=== PATIENT | female | born 1995 ===

== ENCOUNTER 2023-03-29 12:07 | Outpatient (RCR) | payer MEDICAID ==
[2023-03-20 11:30] VITALS: BP 112/67
[2023-03-20] MEDS: IRON SUCROSE 200 MG/10 ML VIAL IV SCH (11:57)
[2023-03-22] MEDS: IRON SUCROSE 200 MG/10 ML VIAL IV SCH (09:40)
[2023-03-22 09:47] VITALS: BP 112/67
[2023-03-25] MEDS: IRON SUCROSE 200 MG/10 ML VIAL IV SCH (14:27)
[2023-03-25 14:30] VITALS: BP 111/74
[2023-03-27] MEDS: IRON SUCROSE 200 MG/10 ML VIAL IV SCH (09:57)
[2023-03-27 10:00] VITALS: BP 116/72
[~2023-03-29] VITALS: Wt 69.1 kg
[~2023-03-29 12:07] MED LIST: ACHD5005 PO; DOCU-239 PO; FERR325T18 PO; IBUP-844 PO; PREN1TAB19 PO
[2023-03-29] MEDS ORDERED: IRON SUCROSE 200 MG/10 ML VIAL IV ONE (12:11)
[2023-03-29] MEDS: IRON SUCROSE 200 MG/10 ML VIAL IV SCH (12:27)
[2023-03-29 12:28] VITALS: BP 111/59
== END 2023-03-29 12:52 | disposition home or self-care (01) ==
LOC: SDC 12:07
PROVIDERS: ATTEND Family Medicine
DX: O99.013 Anemia complicating pregnancy, third trimester (principal); D50.9 Iron deficiency anemia, unspecified; Z3A.00 Weeks of gestation of pregnancy not specified
CPT/HCPCS: 96365

== ENCOUNTER 2023-04-16 23:28 | Outpatient (CLI) | payer MEDICAID ==
[~2023-04-16] VITALS: Ht 154.9 cm; Wt 75.3 kg
[2023-04-17 00:20] VITALS: BP 111/56
--- NOTE | 2023-04-17 08:21 | Physician Query-Final Dx ---
HARSHAD,04/17/23 0821: Clinic Account Progress/Dx Physician Query: Please give diagnosis Please include # weeks gestation Date of Service Apr 16, 2023 at 23:28 VANESSA KIRKLAND DO 04/17/23 1029: Clinic Account Progress/Dx DIAGNOSIS: Diagnosis 37 week IUP Irregular contractions ,JulApr 17, 2023 08:21 VANESSA KIRKLAND DO Apr 17, 2023 10:29
== END 2023-04-17 02:33 ==
LOC: WSo 23:28 → LDRP 23:28 → WSo 04-17 02:33
PROVIDERS: ATTEND Obstetrics & Gynecology
DX: O62.9 Abnormality of forces of labor, unspecified (principal); Z3A.37 37 weeks gestation of pregnancy
CPT/HCPCS: 99213

== ENCOUNTER 2023-04-29 09:07 | Inpatient (IN) | payer MEDICAID ==
[~2023-04-29] VITALS: Ht 154.9 cm; Wt 76.0 kg
[2023-04-29] VITALS (57 sets, daily range): BP systolic 99–163; BP diastolic 55–94
[2023-04-29] MEDS ORDERED: LACTATED RINGERS 1,000 ML 500 ML IV PRN (10:45)
[2023-04-29] MEDS ORDERED: MINERAL OIL 30 ML UDC TOP PRN (10:45)
[2023-04-29] MEDS ORDERED: D5 LR 1,000 ML IV SOLN 1,000 ML IV SCH (10:45)
[2023-04-29 10:46] LABS: BASOPHILS % (AUTO) 0 % (0-10)
--- NOTE | 2023-04-29 10:46 | History & Physical-OB ---
OB - Chief Complaint & HPI Date/Time Date of Admission: Date of Admission: 04/29/23 Date seen by a Provider: Apr 29, 2023 Time Seen by a Provider: 10:25 Chief Complaint/History OB-Reason for Admission/Chief: Onset of Labor Hx : 3 Hx Para: 2 Expected Date of Delivery: May 07, 2023 Gestational Age in Weeks: 38 Gestational Age in Days: 6 Other reason for admission: This 27yo presents to L&D at 38w6d with c/o CTXs q5 min that started about 0400 today. Pt denies LOF or VB. Pt's last ended in LTCS d/t distress witha prolonged bradycardia. Her first was a w/o complications. Pt and I had discussed via a margin clerk the risks and benefits of TOLAC in great detail. the pt had ample opportunity to ask questions and had her questions answered to her satisfaction. Pt would like to proceed to TOLAC. Admission Nurse Assessment Rev: Yes History of Labs O+ GBS neg RI Hep B/C NEG HIV NEG RPR NEG Allergies and Home Medications Allergies Coded Allergies: No Known Drug Allergies (Unverified , 10/27/19) Patient Home Medication List Home Medication List Reviewed: Yes Vit/Iron Fumarate/FA ( Vitamins Tablet) 1 Each Tablet, 1 EACH PO DAILY, (Reported) Entered as Reported by: ANGY PEDRAZA on 10/28/19 0956 Last Action: Reviewed OB - History Hx of Present Care: Yes Ultrasounds: Normal mid trimester US Obstetrical Complications: Other (History of LTCS) Information Induced Hypertension: No Maternal Gestational Diabetes: No Hemorrhage: No Obstetrical History Hx : 3 Hx Para: 2 Hx # Term Pregnancies: 2 Hx # Pregnancies: 0 Number of Living Children: 2 Hx Termination: No Delivery History Hx Section: Yes (for distress (1 prior )) Patient Past Medical History n/a Social History/Family History Alcohol Use: Denies Use Smoking Cessation: Never smoker 2nd Hand Smoke Exposure: No Immunizations Influenza Vaccine Up-to-Date: Yes; Up-to-Date OB - Admission Exam Physical Exam HEENT: NCAT Heart: Rhythm Normal Lungs: Clear Abdomen: Gravid Extremities: Normal Reflexes: Normal Cervical Dilatation: 3cm Effacement: 100% Station: -2 Membranes: Intact Heart Rate: 130's Accelerations: Accelerations Present Decelerations: No Decelerations Short Term Variability: Present Care Home Variability: Average (6-25) Contractions on Admission: < 5 Minutes Apart Intensity: Moderate OB - Assessment/Plan/Diagnosis Assessment Assessment: active labor Admission Dx IUP @ 38w6d Active Labor Previous LTCS (with 1 prior ) Admit for labor Plan for TOLAC Admission Status: Inpatient Order (span 2 midnights) Reason for Inpatient Admission: IUP @ 38w6d Active Labor Previous LTCS (with 1 prior ) Admit for labor Plan for TOLAC Plan Plan: Expectant Management SHEILA DOMINGUEZ DO Apr 29, 2023 10:46
[2023-04-29 10:48] LABS: EOSINOPHILS # (AUTO) 0.1 10^3/uL (0.0-0.3); EOSINOPHILS % (AUTO) 1 % (0-10); HEMATOCRIT 37 % (35-52); HEMOGLOBIN 11.5 g/dL (11.5-16.0); LYMPHOCYTES # (AUTO) 1.6 10^3/uL (1.0-4.0); LYMPHOCYTES % (AUTO) 23 % (12-44); MEAN CORPUSCULAR HEMOGLOBIN 25 pg (25-34); MEAN CORPUSCULAR HGB CONC 31 g/dL (32-36); MEAN CORPUSCULAR VOLUME 81 fL (80-99); MEAN PLATELET VOLUME 10.2 fL (9.0-12.2); MONOCYTES # (AUTO) 0.4 10^3/uL (0.0-1.0); MONOCYTES % (AUTO) 5 % (0-12); NEUTROPHILS # (AUTO) 4.9 10^3/uL (1.8-7.8); NEUTROPHILS % (AUTO) 71 % (42-75); PLATELET COUNT 202 10^3/uL (130-400)
[2023-04-29] MEDS ORDERED: fentaNYL 2 mcg/ml BUPIVA 0.125 100 ML ONE (11:15)
[2023-04-29] MEDS ORDERED: BUPIVACAINE 0.25% 10 ML VIAL ONE (11:52)
[2023-04-29] MEDS ORDERED: fentaNYL INJECTION 100 MCG/2 ML VIAL ONE ×2 (11:52→19:52)
[2023-04-29] MEDS ORDERED: ONDANSETRON INJECTION 4 MG/2 ML (SDV) IV PRN (12:30)
[2023-04-29] MEDS ORDERED: CATHETER FLUSH 10 ML SYR IV PRN ×2 (12:30→20:00)
[2023-04-29] MEDS ORDERED: LACTATED RINGERS 1,000 ML 1,000 ML IV ONE (12:30)
[2023-04-29] MEDS ORDERED: fentaNYL 2 mcg/ml BUPIVA 0.125 100 ML EPI SCH (12:30)
[2023-04-29] MEDS ORDERED: NALOXONE 0.4 MG/ML 1 ML VIAL IV PRN ×2 (12:30→21:15)
[2023-04-29] MEDS ORDERED: diphenhydrAMINE INJ 50 MG/ML VIAL IV PRN (12:30)
--- NOTE | 2023-04-29 12:52 | Progress Note ---
Standard Progress Note Progress Notes/Assess & Plan Date Seen by a Provider: Apr 29, 2023 Time Seen by a Provider: 12:45 Progress/Assessment & Plan Pt is comfortable with epidural FHT 140 CAT I CVX /-1 AROM moderate amount clear fluid Tocos Q5min Anticipate delivery SHEILA DOMINGUEZ DO Apr 29, 2023 12:52
[2023-04-29] MEDS ORDERED: CATHETER FLUSH 10 ML SYR IV SCH ×2 (14:00→22:00)
[2023-04-29] MEDS ORDERED: OXYTOCIN DRIP PRE-MIX 500 ML IV ONE ×3 (17:39→21:51)
[2023-04-29] MEDS ORDERED: METOCLOPRAMIDE INJ 10 MG/2 ML ONE (19:50)
[2023-04-29] MEDS ORDERED: CITRIC ACID/SODIUM CITRATE ORAL SOLN 30 ML ONE (19:50)
[2023-04-29] MEDS ORDERED: FAMOTIDINE INJ 20MG/2ML VIAL ONE (19:50)
[2023-04-29] MEDS ORDERED: LIDOCAINE PF 2% 5 ML VIAL ONE (19:51)
[2023-04-29] MEDS ORDERED: AZITHROMYCIN INJECTION 500 MG VIAL ONE (19:52)
[2023-04-29] MEDS ORDERED: ceFAZolin INJECTION 2,000 MG ONE (19:52)
[2023-04-29] MEDS ORDERED: NS (IVPB) 250 ML 250 ML ONE (19:53)
[2023-04-29] MEDS ORDERED: NS (IVPB) 50 ML 50 ML ONE (19:56)
[2023-04-29] MEDS ORDERED: AZITHROMYCIN INJECTION 500 MG in NS (IVPB) 250 ML 250 ML IV ONE (20:00)
[2023-04-29] MEDS ORDERED: METOCLOPRAMIDE INJ 10 MG/2 ML IV ONE (20:00)
[2023-04-29] MEDS ORDERED: LACTATED RINGERS 1,000 ML 1,000 ML IV PRN ×2 (20:00)
[2023-04-29] MEDS ORDERED: CITRIC ACID/SODIUM CITRATE ORAL SOLN 30 ML PO ONE (20:00)
[2023-04-29] MEDS ORDERED: FAMOTIDINE INJ 20MG/2ML VIAL IV ONE (20:00)
[2023-04-29] MEDS ORDERED: ceFAZolin INJECTION 2,000 MG in NS (IVPB) 50 ML 50 ML IV ONE (20:00)
--- NOTE | 2023-04-29 20:09 | Progress Note ---
Standard Progress Note Progress Notes/Assess & Plan Date Seen by a Provider: Apr 29, 2023 Time Seen by a Provider: 19:45 Progress/Assessment & Plan Pt has been pushing for 2+ hours with no forward progress. Epidural was turned off and pt was feeling CTXs FHT 140s CAT I CVX C/+1 TOCOs Q 3-5min D/w pt via argon tester that baby was not making any progress and need to proceed to RLTCS We discussed the risks and benefits in detail. Pt verbalized understanding, signed consents and is ready to proceed. SHEILA DOMINGUEZ DO Apr 29, 2023 20:09
--- NOTE | 2023-04-29 20:11 | Cesarean Section Operative ---
Procedure Procedure Note Pre-operative Diagnosis: Rosmery Ervin is a (27 /Para 3 / 2, Gestational Age (wks)38w6d with Failure to descend history of LTCS x1 with TOLAC Post-operative Diagnosis: same + Procedure: Repeat low transverse section Physician: SHEILA DOMINGUEZ Inlayer: Ramez Kirkland DO Estimated blood loss: 500 mL Disposition: Counts correct x3 Stable to PACU Findings: Liveborn female infant, Apgars 7/9, weight 7#15oz, intact placenta, 3vc, nor mal appearing uterus, tubes, and ovaries. Indications:Rosmery Ervin 27-year-old G3, P2 presented at 38 weeks 6 days EGA with active labor and trial of labor. She then continued to complete and had an arrest of descent. Baby did not pass +1 station. It was decided to proceed to repeat low-transverse section Procedure Details: Informed consent was obtained and signed patient was taken to the OR suite. The patient will was bolused with her epidural anesthesia she was prepped and draped usual sterile fashion. A timeout was performed. Anesthesia was confirmed using an Allis clamp and a Pfannenstiel skin incision was made and carried down to level the fascia the fascia was nicked and incised bilaterally reflected off the rectus abdominis muscle both superiorly and inferiorly the rectus abdominis muscle was in the midline and the peritoneum was entered into bluntly and extended bilaterally. An David self-retaining retractor was then inserted without difficulty. It was noted that the bladder was very high and the baby's head was low in the pelvis. The vesicouterine fascia was then nicked and incised bilaterally using Metzenbaum scissors and the bladder flap was then created and reflected off of the uterus. A low transverse uterine incision was made and extended bilaterally. There is noted the head was noted to be low in the pelvis was delivered up out of the pelvis without any difficulty was delivered atraumatically. There is noted to be a nuchal cord x2 which was loose and reduced. The mouth and nose were bulb suctioned and the posterior shoulder delivered followed by the anterior shoulder followed by the rest the . The cord was clamped and then cut and the infant was placed in the actuary's care. The placenta was manually removed the uterus was exteriori zed and cleared of all clot and debris Cord bloods were also obtained. The uterine incision was reapproximated using 0 Vicryl in a running locking fashion and imbricated using 0 Vicryl in a running fashion for excellent hemostasis. Uterus was noted to be atonic so the patient was given 1 g of TXA intravenously in addition to her bolus of Pitocin. Uterus became firm and was noted to be intact both ovaries were noted to be normal as well as the fallopian tubes. The uterus was placed back inside the abdominal cavity and the incision was inspected once more was noted to be hemostatic. The David retractor was then removed and the rectus abdominis muscle was reapproximated using 0 Vicryl in a running fashion. The fascia was reapproximated using 1-0 Vicryl in a running fashion. The subcutaneous layer was reapproximated using 2-0 Vicryl in interrupted stitches. The skin was reapproximate using 3-0 Monocryl in a running fashion and then the incision was sealed with Dermabond. The estimated blood loss was approximately 500 cc fluids were 1500 cc and urine output was 100 cc. The mother and tolerated the procedure well and a recovering in PACU in stable condition. Dr. Ramez KIRKLAND was my front office assistant with the indication that this was a trial of labor that had failed the fetus was low in the pelvis and was concerned that we would require an extra pair of hands. Vitals - Labs Vital Signs - I&O Vital Signs Date Time Temp Pulse Resp B/P (MAP) Pulse Ox O2 Delivery O2 Flow Rate FiO2 04/29/23 19:20 81 18 125/66 (85) 99 Room Air 04/29/23 19:05 98 18 121/57 (78) 99 Room Air 04/29/23 18:50 38.1 104 18 117/55 (75) 99 Room Air 04/29/23 18:35 88 18 117/60 (79) 99 Room Air 04/29/23 18:20 94 18 111/57 (75) 99 Room Air 04/29/23 18:05 98 18 126/66 (86) 99 Room Air 04/29/23 17:50 92 18 117/71 (86) 99 Room Air 04/29/23 17:35 87 18 145/90 (108) 99 Room Air 04/29/23 17:20 81 18 142/94 (110) 100 Room Air 04/29/23 17:05 37.1 83 18 118/66 (83) 100 Room Air 04/29/23 16:50 87 18 108/66 (80) 100 Room Air 04/29/23 16:36 80 18 117/68 (84) 100 Room Air 04/29/23 16:21 85 18 134/74 (94) 99 Room Air 04/29/23 16:06 87 18 122/67 (85) 99 Room Air 04/29/23 15:50 79 18 114/69 (84) 99 Room Air 04/29/23 15:36 37.2 81 18 116/73 (87) 98 Room Air 04/29/23 15:20 79 18 128/85 (99) 99 Room Air 04/29/23 15:05 86 18 123/75 (91) 99 Room Air 04/29/23 14:50 83 18 138/86 (103) 99 Room Air 04/29/23 14:35 76 18 128/78 (95) 100 Room Air 04/29/23 14:20 74 18 127/74 (91) 100 Room Air 04/29/23 14:00 75 18 121/75 (90) 100 Room Air 04/29/23 13:45 81 18 136/84 (101) 100 Room Air 04/29/23 13:30 69 18 128/72 (90) 100 Room Air 04/29/23 13:15 73 18 115/73 (87) 99 Room Air 04/29/23 13:00 74 18 114/68 (83) 100 Room Air 04/29/23 12:45 79 18 121/71 (88) 99 Room Air 04/29/23 12:40 71 18 120/68 (85) 99 Room Air 04/29/23 12:35 77 18 105/63 (77) 99 Room Air 04/29/23 12:30 70 18 117/62 (80) 98 Room Air 04/29/23 12:25 81 18 106/60 (75) 98 Room Air 04/29/23 12:20 83 18 105/60 (75) 98 Room Air 04/29/23 12:15 85 18 103/61 (75) 98 Room Air 04/29/23 12:10 81 18 114/68 (83) 97 Room Air 04/29/23 12:06 85 18 108/57 (74) 97 Room Air 04/29/23 12:02 80 18 110/59 (76) 97 Room Air 04/29/23 11:40 37.1 73 18 112/56 (74) Room Air 04/29/23 09:30 36.3 80 18 122/76 (91) 100 Room Air Labs Laboratory Tests 04/29/23 10:24: White Blood Count 7.0, Red Blood Count 4.53, Hemoglobin 11.5, Hematocrit 37, Mean Corpuscular Volume 81, Mean Corpuscular Hemoglobin 25, Mean Corpuscular Hemoglobin Concent 31L, Red Cell Distribution Width , Platelet Count 202, Mean Platelet Volume 10.2, Immature Granulocyte % (Auto) 0, Neutrophils (%) (Auto) 71, Lymphocytes (%) (Auto) 23, Monocytes (%) (Auto) 5, Eosinophils (%) (Auto) 1, Basophils (%) (Auto) 0, Neutrophils # (Auto) 4.9, Lymphocytes # (Auto) 1.6, Monocytes # (Auto) 0.4, Eosinophils # (Auto) 0.1, Basophils # (Auto) 0.0, Immature Granulocyte # (Auto) 0.0, Percent Immature Platelet Fraction 5.7, Syphilis Total Antibody Negative SHEILA DOMINGUEZ DO Apr 29, 2023 20:11
[2023-04-29] MEDS ORDERED: TRANEXAMIC ACID 100 MG/ML 10 ML INJECTION ONE (20:46)
[2023-04-29] MEDS: KETOROLAC INJ 30 MG/ML VIAL IV SCH (21:00)
[2023-04-29] MEDS ORDERED: ONDANSETRON INJECTION 4 MG/2 ML (SDV) IVP PRN (21:15)
[2023-04-29] MEDS ORDERED: OXYTOCIN DRIP PRE-MIX 500 ML IV SCH (21:15)
[2023-04-29] MEDS ORDERED: MEASLES, MUMPS, RUBELLA VACCINE (MMR) SC SCH (21:15)
[2023-04-29] MEDS ORDERED: Tetanus/Diphtheria/Pertussis (Acell) ADULT Vaccine 0.5 ML IM SCH (21:15)
--- NOTE | 2023-04-29 21:20 | Discharge Inst-Women's Service ---
Discharge Inst-Women's Serv Depart Medication/Instructions New, Converted or Re-Newed RX: Transmitted to Pharmacy Problems Reviewed?: Yes Consults/Follow Up Additional Follow Up: Yes Activity Activity: Activity as Tolerated Driving Instructions: No Driving for 1 Week NO SMOKING: NO SMOKING Nothing Inside Vagina: No Douching, No Nectar, No Tampons Diet Discharge Diet: No Restrictions Symptoms to Report to : Bleeding Excessive, Pain Increased, Fever Over 101 Degrees F, Vaginal Bleeding Increase, Questions/Concerns For Any Problems or Questions: Contact Your Physician Skin/Wound Care Infection Signs and Symptoms: Increased Redness, Foul Odor of Wound, Increased Drainage, Skin Itchy or Has a Rash, Increased Swelling, Temperature Above 101 F Operative Area Clean and Dry: Keep Incision Clean/Dry Stitches/[place]/Dermabond: Dermabond, Care of Stitches Bathing Instructions: VANESSA Drew DO Apr 29, 2023 21:20
[2023-04-29] MEDS ORDERED: BUPIVACAINE 0.5% 30 ML VIAL ONE (21:21)
[2023-04-29] MEDS ORDERED: ACHD5005 PO (21:22)
[2023-04-29] MEDS ORDERED: FERR-74 PO (21:22)
[2023-04-29] MEDS ORDERED: DOCU100C37 PO (21:22)
[2023-04-29] MEDS ORDERED: IBUP-844 PO (21:22)
[2023-04-29] MEDS ORDERED: ONDANSETRON INJECTION 4 MG/2 ML (SDV) ONE (21:51)
[2023-04-29] MEDS ORDERED: KETOROLAC INJ 30 MG/ML VIAL ONE (21:52)
[2023-04-29] MEDS: HYDROcodone/ACETAMINOPHEN 5 MG/325 MG TABLET PO PRN (23:34)
[2023-04-30 00:47] VITALS: BP 106/61
[2023-04-30] MEDS: KETOROLAC INJ 30 MG/ML VIAL IV SCH ×3 (04:29→17:34)
[2023-04-30 04:30] VITALS: BP 105/54
[2023-04-30 05:39] LABS: BASOPHILS % (AUTO) 0 % (0-10); EOSINOPHILS % (AUTO) 0 % (0-10); HEMATOCRIT 30 % (35-52); HEMOGLOBIN 9.6 g/dL (11.5-16.0); LYMPHOCYTES # (AUTO) 1.8 10^3/uL (1.0-4.0); LYMPHOCYTES % (AUTO) 14 % (12-44); MEAN CORPUSCULAR HEMOGLOBIN 25 pg (25-34); MEAN CORPUSCULAR HGB CONC 32 g/dL (32-36); MEAN CORPUSCULAR VOLUME 80 fL (80-99); MEAN PLATELET VOLUME 10.2 fL (9.0-12.2); MONOCYTES # (AUTO) 0.6 10^3/uL (0.0-1.0); MONOCYTES % (AUTO) 4 % (0-12); NEUTROPHILS # (AUTO) 10.4 10^3/uL (1.8-7.8); NEUTROPHILS % (AUTO) 81 % (42-75); PLATELET COUNT 175 10^3/uL (130-400); WHITE BLOOD COUNT 12.8 10^3/uL (4.3-11.0)
--- NOTE | 2023-04-30 07:49 | Anesthesia-Regional Post-Op ---
Regional Patient Condition Mental Status: Alert, Oriented x3 Circulation: Same as Pre-Op Headache: Absent Sensation: Full Recovery Motor Block: Absent Post Op Complications Complications None Follow Up Care/Instructions Patient Instructions None needed. Anesthesia/Patient Condition Patient is doing well, no complaints, stable vital signs, no apparent adverse anesthesia problems. No complications reported per nursing. MAURISIO SAUCEDO CRNA Apr 30, 2023 07:49
[2023-04-30 08:15] VITALS: BP 115/64
--- NOTE | 2023-04-30 08:15 | Postpartum Progress Note ---
Note Note Day # 1 Subjective: Patient is without complaints. Ambulating, voiding. Tolerating a regular diet without nausea or vomiting. Normal lochia. Pain is well controlled with oral pain medications. Objective: Physical Exam: General - Alert and oriented, no apparent distress Abdomen - Soft, appropriately tender to palpation, non-distended, fundus firm at umbilicus Extremities - no edema, negative Dmitriy's bilaterally Incision- c/d/i Assessment: POD 1 RLTCS Acute blood loss anemia Plan: Routine care. Encourage breast feeding. Encourage ambulation. Ferrous sulfate supplementation. Plan for discharge tomorrow Vitals - Labs Vital Signs - I&O Vital Signs Date Time Temp Pulse Resp B/P (MAP) Pulse Ox O2 Delivery O2 Flow Rate FiO2 04/30/23 04:30 36.7 84 20 105/54 (71) 97 Room Air 04/30/23 03:59 Room Air 04/30/23 00:47 37.0 85 16 106/61 (76) 98 Room Air 04/29/23 22:23 77 16 109/56 (73) 97 Room Air 04/29/23 22:09 75 18 104/60 (75) 97 Room Air 04/29/23 22:05 36.5 20 104/76 (85) 98 Room Air 04/29/23 22:05 Room Air 04/29/23 22:02 Room Air 04/29/23 22:00 20 107/74 (85) 98 Room Air 04/29/23 21:54 Room Air 04/29/23 21:50 18 99/66 (77) 99 Room Air 04/29/23 21:44 Room Air 04/29/23 21:40 18 110/71 (84) 99 Room Air 04/29/23 21:35 Room Air 04/29/23 21:30 20 106/72 (83) 99 Room Air 04/29/23 21:25 Room Air 04/29/23 21:25 20 107/60 (76) 100 Room Air 04/29/23 21:14 Room Air 04/29/23 21:14 36.3 22 104/76 (85) 100 Room Air 04/29/23 20:24 97 18 138/60 (86) Room Air 04/29/23 20:20 90 18 125/84 (98) Room Air 04/29/23 20:17 88 18 126/58 (80) Room Air 04/29/23 20:13 93 18 127/69 (88) Room Air 04/29/23 20:11 89 18 124/68 (86) Room Air 04/29/23 20:08 91 18 123/60 (81) Room Air 04/29/23 20:05 90 18 122/66 (84) Room Air 04/29/23 20:04 90 18 116/63 (80) Room Air 04/29/23 19:59 36.6 85 18 114/58 (76) Room Air 04/29/23 19:36 85 18 163/73 (103) Room Air 04/29/23 19:20 81 18 125/66 (85) 99 Room Air 04/29/23 19:05 98 18 121/57 (78) 99 Room Air 04/29/23 18:50 38.1 104 18 117/55 (75) 99 Room Air 04/29/23 18:35 88 18 117/60 (79) 99 Room Air 04/29/23 18:20 94 18 111/57 (75) 99 Room Air 04/29/23 18:05 98 18 126/66 (86) 99 Room Air 04/29/23 17:50 92 18 117/71 (86) 99 Room Air 04/29/23 17:35 87 18 145/90 (108) 99 Room Air 04/29/23 17:20 81 18 142/94 (110) 100 Room Air 04/29/23 17:05 37.1 83 18 118/66 (83) 100 Room Air 04/29/23 16:50 87 18 108/66 (80) 100 Room Air 04/29/23 16:36 80 18 117/68 (84) 100 Room Air 04/29/23 16:21 85 18 134/74 (94) 99 Room Air 04/29/23 16:06 87 18 122/67 (85) 99 Room Air 04/29/23 15:50 79 18 114/69 (84) 99 Room Air 04/29/23 15:36 37.2 81 18 116/73 (87) 98 Room Air 04/29/23 15:20 79 18 128/85 (99) 99 Room Air 04/29/23 15:05 86 18 123/75 (91) 99 Room Air 04/29/23 14:50 83 18 138/86 (103) 99 Room Air 04/29/23 14:35 76 18 128/78 (95) 100 Room Air 04/29/23 14:20 74 18 127/74 (91) 100 Room Air 04/29/23 14:00 75 18 121/75 (90) 100 Room Air 04/29/23 13:45 81 18 136/84 (101) 100 Room Air 04/29/23 13:30 69 18 128/72 (90) 100 Room Air 04/29/23 13:15 73 18 115/73 (87) 99 Room Air 04/29/23 13:00 74 18 114/68 (83) 100 Room Air 04/29/23 12:45 79 18 121/71 (88) 99 Room Air 04/29/23 12:40 71 18 120/68 (85) 99 Room Air 04/29/23 12:35 77 18 105/63 (77) 99 Room Air 04/29/23 12:30 70 18 117/62 (80) 98 Room Air 04/29/23 12:25 81 18 106/60 (75) 98 Room Air 04/29/23 12:20 83 18 105/60 (75) 98 Room Air 04/29/23 12:15 85 18 103/61 (75) 98 Room Air 04/29/23 12:10 81 18 114/68 (83) 97 Room Air 04/29/23 12:06 85 18 108/57 (74) 97 Room Air 04/29/23 12:02 80 18 110/59 (76) 97 Room Air 04/29/23 11:40 37.1 73 18 112/56 (74) Room Air 04/29/23 09:30 36.3 80 18 122/76 (91) 100 Room Air I & O 04/30/23 07:00 Intake Total 1800 ml Output Total 200 ml Balance 1600 ml Labs Laboratory Tests 04/29/23 10:24: White Blood Count 7.0, Red Blood Count 4.53, Hemoglobin 11.5, Hematocrit 37, Mean Corpuscular Volume 81, Mean Corpuscular Hemoglobin 25, Mean Corpuscular Hemoglobin Concent 31L, Red Cell Distribution Width , Platelet Count 202, Mean Platelet Volume 10.2, Immature Granulocyte % (Auto) 0, Neutrophils (%) (Auto) 71, Lymphocytes (%) (Auto) 23, Monocytes (%) (Auto) 5, Eosinophils (%) (Auto) 1, Basophils (%) (Auto) 0, Neutrophils # (Auto) 4.9, Lymphocytes # (Auto) 1.6, Monocytes # (Auto) 0.4, Eosinophils # (Auto) 0.1, Basophils # (Auto) 0.0, Immature Granulocyte # (Auto) 0.0, Percent Immature Platelet Fraction 5.7, Syphilis Total Antibody Negative 04/30/23 05:24: White Blood Count 12.8H, Red Blood Count 3.78L, Hemoglobin 9.6L, Hematocrit 30L, Mean Corpuscular Volume 80, Mean Corpuscular Hemoglobin 25, Mean Corpuscular Hemoglobin Concent 32, Red Cell Distribution Width , Platelet Count 175, Mean Platelet Volume 10.2, Immature Granulocyte % (Auto) 0, Neutrophils (%) (Auto) 81H, Lymphocytes (%) (Auto) 14, Monocytes (%) (Auto) 4, Eosinophils (%) (Auto) 0, Basophils (%) (Auto) 0, Neutrophils # (Auto) 10.4H, Lymphocytes # (Auto) 1.8, Monocytes # (Auto) 0.6, Eosinophils # (Auto) 0.0, Basophils # (Auto) 0.0, Immature Granulocyte # (Auto) 0.0 VANESSA KIRKLAND DO Apr 30, 2023 08:15
[2023-04-30] MEDS: DOCUSATE SODIUM 100 MG CAPSULE PO SCH ×2 (09:39→20:59)
[2023-04-30] MEDS: HYDROcodone/ACETAMINOPHEN 5 MG/325 MG TABLET PO PRN ×3 (10:59→23:28)
[2023-04-30 12:30] VITALS: BP 102/59
[2023-04-30 17:30] VITALS: BP 119/72
[2023-04-30] MEDS ORDERED: SIMETHICONE 80 MG CHEWABLE TABLET ONE (20:58)
[2023-04-30] MEDS: SIMETHICONE 80 MG CHEWABLE TABLET PO SCH (20:59)
[2023-04-30 22:54] VITALS: BP 111/70
[2023-04-30] MEDS: IBUPROFEN 600 MG TABLET PO SCH (22:54)
[2023-05-01 05:29] VITALS: BP 105/69
[2023-05-01] MEDS: IBUPROFEN 600 MG TABLET PO SCH ×2 (05:29→11:44)
[2023-05-01] MEDS: HYDROcodone/ACETAMINOPHEN 5 MG/325 MG TABLET PO PRN ×2 (05:29→11:44)
--- NOTE | 2023-05-01 08:49 | Postpartum Progress Note ---
Note Note Day # 2 Subjective: Patient is without complaints. Ambulating, voiding. Tolerating a regular diet without nausea or vomiting. Normal lochia. Pain is well controlled with oral pain medications. Objective: Physical Exam: General - Alert and oriented, no apparent distress Abdomen - Soft, appropriately tender to palpation, non-distended, fundus firm at umbilicus Extremities - no edema, negative Dmitriy's bilaterally Incision- c/d/i Assessment: POD 2 RLTCS Acute blood loss anemia Plan: Routine care. Encourage breast feeding. Encourage ambulation. Ferrous sulfate supplementation. Plan for discharge today Vitals - Labs Vital Signs - I&O Vital Signs Date Time Temp Pulse Resp B/P (MAP) Pulse Ox O2 Delivery O2 Flow Rate FiO2 05/01/23 05:29 36.6 90 18 105/69 (81) 98 Room Air 04/30/23 22:54 36.7 78 18 111/70 (84) 99 Room Air 04/30/23 17:30 36.8 76 18 119/72 (88) 99 Room Air 04/30/23 12:30 36.4 81 18 102/59 (73) 98 Room Air I & O 05/01/23 07:00 Intake Total 2000 ml Output Total 1550 ml Balance 450 ml VANESSA KIRKLAND DO May 01, 2023 08:49
[2023-05-01 09:30] VITALS: BP 108/58
[2023-05-01] MEDS: SIMETHICONE 80 MG CHEWABLE TABLET PO SCH ×2 (09:41→13:27)
[2023-05-01] MEDS: DOCUSATE SODIUM 100 MG CAPSULE PO SCH (09:41)
[2023-05-01 13:15] VITALS: BP 108/63
[2023-05-01 15:55] VITALS: BP 108/63
== END 2023-05-01 15:55 | disposition home or self-care (01) | DRG 787 ==
LOC: WSo 09:07 → LDRP 09:07 → WSo 10:36 → LDRP 10:37
PROVIDERS: ADMIT Obstetrics & Gynecology; ATTEND Obstetrics & Gynecology
PROC: 10D00Z1 Extraction of Products of Conception, Low, Open Approach (ICD-10-PCS; principal; 2023-04-29 20:28)
DX: O34.211 Maternal care for low transverse scar from previous cesarean delivery (principal); D62 Acute posthemorrhagic anemia; Z3A.38 38 weeks gestation of pregnancy; Z37.0 Single live birth; O32.4XX0 Maternal care for high head at term, not applicable or unspecified; O69.81X0 Labor and delivery complicated by cord around neck, without compression, not applicable or unspecified; O90.81 Anemia of the puerperium
CPT/HCPCS: 36415; 85025; 86780; 86850; 86900; 86901; 94664